=== PATIENT | female | born 1965 | race Two or more races ===

== ENCOUNTER 2022-01-07 11:36 | Inpatient (IN) | payer MEDICAID, OTHER ==
[~2022-01-07] VITALS: Ht 172.7 cm; Wt 51.7 kg
[2022-01-07] MEDS ORDERED: HYDROmorphone HCL 2 MG/ML VL/or syr IV ONE (12:15)
[2022-01-07] MEDS ORDERED: KETOROLAC TROMETH 30 MG/ML 1ML VIAL IV ONE (12:15)
[2022-01-07] MEDS ORDERED: ONDANSETRON HCL 4 MG/2 ML VIAL IV ONE (12:15)
[2022-01-07] MEDS ORDERED: SODIUM CHLORIDE 0.9% 1,000 ML IV ONE (12:15)
[2022-01-07] MEDS ORDERED: ACETAMINOPHEN 325 MG TAB PO ONE (12:15)
[2022-01-07 12:30] LABS: Urine Bacteria MOD /hpf (None Seen); Urine Blood 3+ /uL (Negative); Urine Specific Gravity 1.018 (1.001-1.035); Urine WBC 157 /hpf (0 - 5); Urine WBC Clumps PRESENT /hpf (None Seen)
[2022-01-07 13:43] LABS: Basophils # (auto) 0 10 ^3/uL (0-0.2); Basophils % (auto) 0.2 % (0.0-2.0); Eosinophils # (auto) 0 10 ^3/uL (0-0.8); Hematocrit 40.7 % (36.0-46.0); Hemoglobin 13.9 g/dL (12.2-16.2); Lymphocytes # (auto) 0.5 10 ^3/uL (0.4-5.4); Lymphocytes % (auto) 3.3 % (10.0-50.0); Mean Corpuscular Hemoglobin 30.2 pg (28.0-32.0); Mean Corpuscular Volume 88.7 fL (80.0-100.0); Monocytes # (auto) 0.8 10 ^3/uL (0-1.3); Monocytes % (auto) 5.3 % (0.0-12.0); Neutrophils # (auto) 14.4 10 ^3/uL (1.6-8.6); Neutrophils % (auto) 91.2 % (37.0-80.0); Red Blood Cells 4.59 10^6/uL (4.0-5.20); Red Cell Distribution Width 14.4 % (11.8-14.3); White Blood Cell 15.8 10^3/uL (4.4-10.8)
[2022-01-07] MEDS ORDERED: LEVO500T31 PO (13:54)
[2022-01-07 14:05] LABS: Potassium 3.1 mmol/L (3.5-5.1)
[2022-01-07 14:09] LABS: Albumin 3.3 g/dL (3.4-5.0); Calcium 8.2 mg/dL (8.5-10.1)
[2022-01-07 14:11] LABS: Bilirubin, Total 0.7 mg/dL (0.2-1.0)
[2022-01-07] MEDS ORDERED: levoFLOXacin 500 MG TAB PO ONE (15:00)
[2022-01-07] MEDS ORDERED: levoFLOXacin 500MG 100 ML IV ONE (17:00)
[2022-01-07] MEDS ORDERED: SODIUM CHLORIDE 0.9% 2,000 ML IV ONE (17:00)
[2022-01-07] MEDS ORDERED: cefTRIAXone 1GM/50ML D5W 50 ML IV ONE (18:30)
[2022-01-07] MEDS: SODIUM CHLORIDE 0.9% 1,000 ML IV SCH (21:30)
[2022-01-07] MEDS ORDERED: HYDROcodone-ACET 5/325MG TAB PO PRN (21:30)
[2022-01-07] MEDS ORDERED: ONDANSETRON HCL 4 MG/2 ML VIAL IV PRN (21:30)
[2022-01-07] MEDS ORDERED: DOCUSATE SOD 100 MG CAP PO PRN (21:30)
[2022-01-07] MEDS: POTASSIUM CHL 20MEQ/100ML 100 ML IV SCH ×2 (22:44→23:34)
[2022-01-07] MEDS: PHENAZOPYRIDINE HCL 100 MG TAB PO SCH (22:45)
[2022-01-07] MEDS: ACETAMINOPHEN 325 MG TAB PO PRN (23:33)
[2022-01-07] MEDS ORDERED: NITROGLYCERIN 0.4 MG SL TAB SL PRN (23:45)
[2022-01-07] MEDS ORDERED: MORPHINE SULFATE INJ 2 MG/ml SYRG IV PRN (23:45)
[2022-01-08] VITALS (7 sets, daily range): BP systolic 94–127; BP diastolic 47–64
[2022-01-08] MEDS: ACETAMINOPHEN 325 MG TAB PO PRN ×2 (01:30→10:39)
[2022-01-08] MEDS: POTASSIUM CHL 20MEQ/100ML 100 ML IV SCH (02:04)
[2022-01-08] MEDS ORDERED: LEVO88CA3 PO (04:40)
[2022-01-08] MEDS: LEVOTHYROXINE SODIUM 88 MCG TAB PO SCH (06:11)
[2022-01-08 06:19] LABS: Basophils # (auto) 0 10 ^3/uL (0-0.2); Basophils % (auto) 0.3 % (0.0-2.0); Eosinophils # (auto) 0 10 ^3/uL (0-0.8); Hematocrit 36.5 % (36.0-46.0); Hemoglobin 12.4 g/dL (12.2-16.2); Lymphocytes # (auto) 0.7 10 ^3/uL (0.4-5.4); Lymphocytes % (auto) 6.2 % (10.0-50.0); Mean Corpuscular Hemoglobin 30.8 pg (28.0-32.0); Mean Corpuscular Hgb Conc. 33.9 g/dL (32.0-36.0); Mean Corpuscular Volume 90.8 fL (80.0-100.0); Monocytes # (auto) 0.9 10 ^3/uL (0-1.3); Monocytes % (auto) 7.9 % (0.0-12.0); Neutrophils # (auto) 10.2 10 ^3/uL (1.6-8.6); Neutrophils % (auto) 85.6 % (37.0-80.0); Red Blood Cells 4.02 10^6/uL (4.0-5.20); Red Cell Distribution Width 14.5 % (11.8-14.3); White Blood Cell 11.9 10^3/uL (4.4-10.8)
[2022-01-08 06:33] LABS: Albumin 2.5 g/dL (3.4-5.0); Calcium 7.5 mg/dL (8.5-10.1)
[2022-01-08 06:37] LABS: BUN/Creatinine Ratio 14.5; Bilirubin, Total 0.5 mg/dL (0.2-1.0); Total Protein 5.7 g/dL (6.4-8.2)
[2022-01-08] MEDS: ENOXAPARIN SOD 40 MG/0.4 ML SYRINGE SC SCH (10:00)
[2022-01-08] MEDS: PHENAZOPYRIDINE HCL 100 MG TAB PO SCH ×2 (10:38→21:09)
[2022-01-08] MEDS: SODIUM CHLORIDE 0.9% 1,000 ML IV SCH (15:45)
[2022-01-08] MEDS: levoFLOXacin 500MG 100 ML IV SCH (17:55)
[2022-01-09] MEDS: SODIUM CHLORIDE 0.9% 1,000 ML IV SCH ×2 (02:13→23:38)
[2022-01-09] MEDS: ACETAMINOPHEN 325 MG TAB PO PRN (03:21)
[2022-01-09 04:56] VITALS: BP 118/63
[2022-01-09] MEDS: LEVOTHYROXINE SODIUM 88 MCG TAB PO SCH (06:16)
[2022-01-09 08:30] VITALS: BP 114/60
[2022-01-09 09:00] VITALS: BP 114/60
[2022-01-09] MEDS: PHENAZOPYRIDINE HCL 100 MG TAB PO SCH ×2 (09:05→22:34)
[2022-01-09] MEDS: ENOXAPARIN SOD 40 MG/0.4 ML SYRINGE SC SCH (09:06)
[2022-01-09] MEDS ORDERED: LEVO500T31 PO (10:37)
[2022-01-09 12:41] VITALS: BP 121/66
[2022-01-09] MEDS: levoFLOXacin 500MG 100 ML IV SCH (17:07)
[2022-01-09 17:22] VITALS: BP 124/63
[2022-01-09 22:00] VITALS: BP 122/74
[2022-01-10 05:00] VITALS: BP 109/66
[2022-01-10 07:30] VITALS: BP 113/50
[2022-01-10] MEDS: LEVOTHYROXINE SODIUM 88 MCG TAB PO SCH (07:34)
[2022-01-10 09:00] VITALS: BP 113/50
[2022-01-10] MEDS: ENOXAPARIN SOD 40 MG/0.4 ML SYRINGE SC SCH (09:11)
[2022-01-10] MEDS: PHENAZOPYRIDINE HCL 100 MG TAB PO SCH (09:11)
[2022-01-10 12:27] VITALS: BP 113/50
[2022-01-10 13:57] VITALS: BP 122/56
== END 2022-01-10 14:20 | disposition home or self-care (01) | DRG 720 ==
LOC: ER 11:36 → TELE 23:41 → OVERFLOW 23:47 → EAST 01-08 05:07
PROVIDERS: ADMIT Nurse Practitioner Family; ATTEND Family Medicine
DX: A41.9 Sepsis, unspecified organism (principal); E03.9 Hypothyroidism, unspecified; E87.6 Hypokalemia; N88.8 Other specified noninflammatory disorders of cervix uteri; M19.90 Unspecified osteoarthritis, unspecified site; E86.0 Dehydration; Z20.822 Contact with and (suspected) exposure to COVID-19; N39.0 Urinary tract infection, site not specified; B96.20 Unspecified Escherichia coli [E. coli] as the cause of diseases classified elsewhere
CPT/HCPCS: 36415; 71045; 74176; 76856; 80053; 81001; 83605; 83690; 84443; 84484; 85025; 87040; 87086; 87088; 87186; 93005; 96361; 96374; 96375; G0378; J0696; J1885; J1956; J2405; J3480

== ENCOUNTER 2022-03-03 08:05 | Day surgery (SDC) | payer MEDICAID ==
[2022-02-28 10:59] LABS: Basophils # (auto) 0.1 10 ^3/uL (0-0.2); Basophils % (auto) 1.2 % (0.0-2.0); Eosinophils # (auto) 0.1 10 ^3/uL (0-0.8); Eosinophils % (auto) 2.2 % (0.0-7.0); Hematocrit 42.2 % (36.0-46.0); Hemoglobin 13.9 g/dL (12.2-16.2); Lymphocytes # (auto) 1.2 10 ^3/uL (0.4-5.4); Lymphocytes % (auto) 23.1 % (10.0-50.0); Mean Corpuscular Hemoglobin 30.7 pg (28.0-32.0); Mean Corpuscular Hgb Conc. 33.1 g/dL (32.0-36.0); Mean Corpuscular Volume 92.8 fL (80.0-100.0); Monocytes # (auto) 0.4 10 ^3/uL (0-1.3); Monocytes % (auto) 7.1 % (0.0-12.0); Neutrophils # (auto) 3.5 10 ^3/uL (1.6-8.6); Neutrophils % (auto) 66.4 % (37.0-80.0); Red Blood Cells 4.54 10^6/uL (4.0-5.20); Red Cell Distribution Width 14.3 % (11.8-14.3); White Blood Cell 5.2 10^3/uL (4.4-10.8)
[2022-02-28 11:12] LABS: INR 0.98 (0.9-1.15); Partial Thromboplastin Time 28.1 sec (24.6-33.4)
[2022-02-28 11:18] LABS: Urine Bacteria NONE SEEN /hpf (None Seen); Urine Blood Negative /uL (Negative); Urine Mucus FEW (None Seen); Urine Specific Gravity 1.008 (1.001-1.035); Urine WBC 2 /hpf (0 - 5)
[2022-02-28 11:22] LABS: Albumin 3.8 g/dL (3.4-5.0); Calcium 8.9 mg/dL (8.5-10.1); Potassium 3.8 mmol/L (3.5-5.1)
[2022-02-28 11:27] LABS: BUN/Creatinine Ratio 23.3; Bilirubin, Total 0.5 mg/dL (0.2-1.0); Total Protein 7.2 g/dL (6.4-8.2)
[~2022-03-03] VITALS: Ht 170.2 cm; Wt 71.2 kg
[~2022-03-03 08:05] MED LIST: LEVO500T31 PO; LEVO88CA3 PO
[2022-03-03] MEDS ORDERED: MEPERIDINE HCL (25 MG/ML) 1ML VIAL ONE (08:09)
[2022-03-03] MEDS ORDERED: fentaNYL CITRATE 100 MCG/2 ML VL ONE (08:09)
[2022-03-03] MEDS ORDERED: MIDAZOLAM HCL 2MG/2ML 2ml VIAL (1mg/ml) ONE (08:09)
[2022-03-03] MEDS ORDERED: ONDA-144 PO (08:12)
[2022-03-03] MEDS ORDERED: HYDR-4902 PO (08:12)
[2022-03-03] MEDS ORDERED: IBUP800T27 PO (08:12)
[2022-03-03] MEDS ORDERED: ONDANSETRON HCL 4 MG/2 ML VIAL IV PRN ×2 (08:15→08:45)
[2022-03-03] MEDS ORDERED: LACTATED RINGER'S 1,000 ML IV SCH (08:15)
[2022-03-03] MEDS ORDERED: ceFAZolin 1GM/50ML 100 ML IV ONE (08:19)
[2022-03-03] MEDS ORDERED: DexAMETHasone SOD PHOS 10MG/1ML VIAL INJ ONE (08:43)
[2022-03-03] MEDS ORDERED: PROPOFOL 10 MG/ML 20 ML IV ONE (08:43)
[2022-03-03] MEDS ORDERED: MORPHINE SULFATE 4 MG/ML SYR/VIAL IV PRN (08:45)
[2022-03-03] MEDS ORDERED: MIDAZOLAM HCL 2MG/2ML 2ml VIAL (1mg/ml) IV PRN (08:45)
[2022-03-03] MEDS ORDERED: ePHEDrine SULFATE 50 MG/ML AMP IV PRN (08:45)
[2022-03-03] MEDS ORDERED: LABETALOL HCL 5 MG/ML 4ML SYRINGE IV PRN (08:45)
[2022-03-03] MEDS ORDERED: HYDROmorphone HCL 2 MG/ML VL/or syr IV PRN (08:45)
[2022-03-03 09:45] VITALS: BP 121/70
== END 2022-03-03 10:25 | disposition home or self-care (01) ==
LOC: SUR 08:05
PROVIDERS: ATTEND Obstetrics & Gynecology
DX: N95.0 Postmenopausal bleeding (principal); N88.8 Other specified noninflammatory disorders of cervix uteri; E03.9 Hypothyroidism, unspecified; M06.9 Rheumatoid arthritis, unspecified; Z79.890 Hormone replacement therapy; Z83.3 Family history of diabetes mellitus; Z98.891 History of uterine scar from previous surgery; Z20.822 Contact with and (suspected) exposure to COVID-19
CPT/HCPCS: 36415; 58558; 80053; 81001; 81025; 84702; 85025; 85610; 85730; 86850; 86900; 86901; J0690; J1100; J2175; J2250; J2704; J3010; U0003

== ENCOUNTER → 2022-04-11 | Outpatient (CLI) | payer MEDICAID ==
[~2022-04-11] MED LIST changes: +HYDR-4902 PO; +IBUP800T27 PO; +ONDA-144 PO
[2022-04-11 12:43] LABS: Urine Bacteria NONE SEEN /hpf (None Seen); Urine Blood Negative /uL (Negative); Urine WBC <1 /hpf (0 - 5)
== END | disposition home or self-care (01) ==
LOC: LAB 12:19
PROVIDERS: ATTEND Obstetrics & Gynecology
DX: Z11.3 Encounter for screening for infections with a predominantly sexual mode of transmission (principal)
CPT/HCPCS: 81001; 87086

== ENCOUNTER 2022-10-12 09:22 | Emergency (ER) | payer MEDICAID ==
[~2022-10-12] VITALS: Ht 167.6 cm; Wt 77.9 kg
[2022-10-12 10:01] LABS: Urine Bacteria NONE SEEN /hpf (None Seen); Urine Blood Negative /uL (Negative); Urine Specific Gravity 1.005 (1.001-1.035); Urine WBC 6 /hpf (0 - 5)
[2022-10-12 10:41] VITALS: BP 133/72
[2022-10-12] MEDS ORDERED: BACDST PO (10:50)
[2022-10-12] MEDS ORDERED: PHEN200T16 PO (10:50)
== END 2022-10-12 10:53 | disposition home or self-care (01) ==
LOC: ER 09:22
DX: N39.0 Urinary tract infection, site not specified (principal)
CPT/HCPCS: 81001

== ENCOUNTER 2023-11-14 14:43 | Emergency (ER) | payer MEDICAID ==
[~2023-11-14] VITALS: Ht 170.2 cm; Wt 74.6 kg
[~2023-11-14 14:43] MED LIST changes: +BACDST PO; +IBUP-1456 PO; -IBUP800T27 PO; +PHEN-922 PO
[2023-11-14] MEDS ORDERED: PHEN1TAB38 PO (15:58)
[2023-11-14] MEDS ORDERED: CEPH250C PO (15:58)
[2023-11-14 16:12] LABS: Urine Bacteria FEW /hpf (None Seen); Urine Blood 3+ /uL (Negative); Urine Clarity Clear (Clear); Urine Color Colorless (Yellow); Urine Protein, UAD Negative (Negative); Urine Specific Gravity 1.002 (1.001-1.035); Urine Urobilinogen Normal (Negative); Urine WBC 44 /hpf (0 - 5)
[2023-11-15 03:46] VITALS: BP 123/57; PULSE 78; RESP 15; TEMP 97.6; O2SAT 97
== END 2023-11-15 03:46 | disposition home or self-care (01) ==
LOC: ER 14:43
DX: N39.0 Urinary tract infection, site not specified (principal); E03.9 Hypothyroidism, unspecified; Z79.2 Long term (current) use of antibiotics; Z79.1 Long term (current) use of non-steroidal anti-inflammatories (NSAID); Z79.899 Other long term (current) drug therapy
CPT/HCPCS: 81001

== ENCOUNTER 2024-03-06 07:23 | Emergency (ER) | payer OTHER, SELFPAY ==
[~2024-03-06 07:23] MED LIST changes: +CEPH250C PO; +PHEN1TAB38 PO
[2024-03-06 08:25] LABS: Urine Bacteria FEW /hpf (None Seen); Urine Blood TRACE /uL (Negative); Urine Clarity Clear (Clear); Urine Color Dark-Yellow (Yellow); Urine Hyaline Cast FEW /lpf (0 - 2); Urine Mucus FEW (None Seen); Urine Protein, UAD Negative (Negative); Urine Specific Gravity 1.009 (1.001-1.035); Urine Urobilinogen Normal (Negative); Urine WBC <1 /hpf (0 - 5)
[2024-03-06] MEDS: PHENAZOPYRIDINE HCL 100 MG TAB PO ONE (08:58)
[2024-03-06 09:07] VITALS: BP 127/57; PULSE 64; RESP 16; TEMP 97.3; O2SAT 98
== END 2024-03-06 09:17 | disposition home or self-care (01) ==
LOC: ER 07:23 → EDUNIT# 07:23 → ER 09:16
DX: N39.0 Urinary tract infection, site not specified (principal)
CPT/HCPCS: 81001